=== PATIENT | male | born 2005 | race Two or more races ===

== ENCOUNTER 2024-05-06 15:35 | Emergency (ER) | payer OTHER ==
[~2024-05-06] VITALS: Ht 175.3 cm; Wt 100.7 kg
[2024-05-06 15:36] VITALS: BP 139/72; TEMP 98.2; O2SAT 99
[2024-05-06] MEDS ORDERED: CETI10CH PO (15:56)
== END 2024-05-06 20:11 | disposition left against medical advice (07) ==
LOC: M ED 15:35
DX: S61.441A Puncture wound with foreign body of right hand, initial encounter (principal); W54.0XXA Bitten by dog, initial encounter; Y92.830 Public park as the place of occurrence of the external cause; Y93.89 Activity, other specified; Y99.9 Unspecified external cause status; Z88.0 Allergy status to penicillin; Z88.1 Allergy status to other antibiotic agents; Z79.2 Long term (current) use of antibiotics; Z53.9 Procedure and treatment not carried out, unspecified reason